=== PATIENT | female | born 2005 | race Caucasian/White ===

== ENCOUNTER 2025-02-08 03:46 | Emergency (ER) | payer BC ==
[~2025-02-08] VITALS: Ht 162.6 cm; Wt 52.2 kg
[2025-02-08 05:36] LABS: APPEARANCE,URINE CLEAR (CLEAR); BLOOD, URINE NEGATIVE Ery/uL (NEGATIVE); LEUKOCYTE ESTERASE ,URINE NEGATIVE (NEGATIVE); NITRITE, URINE NEGATIVE (NEGATIVE); UGLUCOSE NEGATIVE (NEGATIVE)
[2025-02-08 05:39] LABS: PREGNANCY TEST URINE QUAL NEGATIVE (NEGATIVE)
[2025-02-08] MEDS ORDERED: TETRAcaine 5 ML BOTTLE ONE (05:44)
[2025-02-08] MEDS ORDERED: FLUORESCEIN SODIUM OPHTH 1 EA STRIP ONE (05:44)
[2025-02-08] MEDS ORDERED: MORPHINE SULFATE INJ 2 MG/ML DISP.SYRIN ONE (05:53)
[2025-02-08] MEDS ORDERED: ONDANSETRON 4 MG TAB.RAPDIS ONE (05:53)
[2025-02-08] MEDS: TETRACAINE HCL 0.5% OPHTALMIC 15 ML BOTTLE OP ONE (05:54)
[2025-02-08] MEDS: FLUORESCEIN SODIUM OPHTH 1 EA STRIP OP ONE (05:54)
[2025-02-08] MEDS: ONDANSETRON 4 MG TAB.RAPDIS PO ONE (06:00)
[2025-02-08] MEDS ORDERED: CIPR5DRO18 EACHEYE (06:00)
[2025-02-08] MEDS ORDERED: KETO10TA2 PO (06:00)
[2025-02-08] MEDS: MORPHINE SULFATE INJ 2 MG/ML DISP.SYRIN IM ONE (06:00)
[2025-02-08 06:15] VITALS: BP 101/61; TEMP 98.8; O2SAT 100
== END 2025-02-08 06:15 | disposition home or self-care (01) ==
LOC: ER 03:51
DX: S05.02XA Injury of conjunctiva and corneal abrasion without foreign body, left eye, initial encounter (principal); X58.XXXA Exposure to other specified factors, initial encounter; Y93.89 Activity, other specified; Y92.89 Other specified places as the place of occurrence of the external cause; Y99.8 Other external cause status
CPT/HCPCS: 99283; 96372; 84703; 81003; Q0162; J2270